=== PATIENT | female | born 1985 | race Caucasian/White ===

== ENCOUNTER 2021-07-22 12:44 | Outpatient (CLI) | payer OTHER, SELFPAY ==
--- NOTE | ~2021-07-22 | US_ITS ---
EXAMINATION: US soft tissue LE RT DATE: 07/22/2021 13:05 INDICATION: Local infection of the skin and subcutaneous tissue of right lower leg. The patient exper ienced a laceration from a nail in May and drainage in June. TECHNIQUE: Multiple grayscale and Doppler ultrasound images of the right lower leg were obtained. COMPARISON: None FINDINGS: In the anterior lower leg, there is a 3.6 x 1.2 cm mass of mixed echogenicity with small cy stic spaces. IMPRESSION: 1. Mass with small cystic spaces in the dominguez, consistent with hematoma and phlegmon/abscess. Reviewed, dictated and finalized at location A. IMPRESSION: 1. Mass with small cystic spaces in the dominguez, consistent with hematoma and phle gmon/abscess.
== END 2021-07-22 12:45 | disposition home or self-care (01) ==
LOC: CHSIMG 12:45
PROVIDERS: PCP Nurse Practitioner Family; Visit Provider Nurse Practitioner Family
DX: L08.9 Local infection of the skin and subcutaneous tissue, unspecified (principal)
CPT/HCPCS: 76882

== ENCOUNTER 2022-02-10 11:03 | Outpatient (CLI) | payer OTHER, SELFPAY ==
[2022-02-13 04:14] LABS: Prolactin 14.1 ng/mL (***)
== END 2022-02-10 11:04 | disposition home or self-care (01) ==
LOC: CHSLAB 11:05
PROVIDERS: PCP Nurse Practitioner Family; Visit Provider Obstetrics & Gynecology
DX: N64.3 Galactorrhea not associated with childbirth (principal)
CPT/HCPCS: 36415; 84146

== ENCOUNTER 2022-03-07 19:19 | Emergency (ER) | payer OTHER, SELFPAY ==
[2022-03-07 19:25] VITALS: BP 176/123; PULSE 109; RESP 20; TEMP 36.6; O2SAT 99
--- NOTE | 2022-03-07 22:00 | ED.URI ---
HPI - URI/Sore Throat General Chief Complaint: Upper Respiratory Infection Stated Complaint: aches fever congestion cough ear Time Seen by Provider: 03/07/22 21:50 Source: patient, RN notes reviewed and old records reviewed Mode of arrival: ambulatory Limitations: no limitations History of Present Illness HPI Narrative: 36 year old female who presents to [facility] with complaints of cough and congestion, fevers up to 101F, ear pain and headache for the past 4 days. Patient reports that she has taken a home COVID test today which was negative, has had COVID vaccinations but no flu shot taken. Patient has been taking Tylenol cold and flu for her symptoms along with Advil. Patient denies any shortness of breath with no tachypnea noted. MD elicited complaint: cough and sore throat Onset (ago): day(s) (4) Pain scale (0-10): 4 Treatments prior to arrival: ibuprofen and other (Tylenol severe cold and flu medication) Related Data Allergies Allergy/AdvReac Type Severity Reaction Status Date / Time pineapple Allergy Intermediate Rash Verified 03/07/22 21:15 strawberry Allergy Intermediate Rash Verified 03/07/22 21:15 amoxicillin AdvReac Mild MILD RASH Verified 03/07/22 21:15 AFTER USING FOR 4-5 DAYS Bee stings Allergy Intermediate Rash Uncoded 03/07/22 21:15 Review of Systems Review of Systems: CONSTITUTIONAL: Reports malaise, chills, sweats, or fever. EYES: Denies visual changes, redness, or discharge. ENT: Reports rhinorrhea, congestion, sinus pain, otalgia no sore throat. CARDIOVASCULAR: Denies chest pain, palpitations, or edema. RESPIRATORY: Reports cough.? Denies dyspnea. GASTROINTESTINAL: Denies abdominal pain, nausea, vomiting, diarrhea SKIN: Denies rash or itching. MUSCULOSKELETAL:Reports myalgia. NEUROLOGIC: reports headache. All systems reviewed & are unremarkable except as noted in HPI and below PMFSH Past Medical History Medical History (Updated 03/08/22 @ 00:00 by Background Daemon) Influenza A Nicotine dependence, cigarettes, uncomplicated Overweight Surgical History Surgical History delivery delivered X 3 S/P endometrial ablation Status post bilateral salpingectomy Family History Family History Grandparent Diabetes mellitus, Onset Age: 5 Family history of coronary artery disease, Onset Age: 82 Father Hypertension Mother Family history of type 2 diabetes mellitus Social History Social History Smoking status: Former smoker Second hand tobacco smoke exposure: No Smoking end date: 04/12/07 Alcohol intake: current Comments At time of signature, agree with nursing past medical, surgical, social and family history. There is no relevant family history pertinent to the presenting complaint Exam Narrative: GENERAL: Well-appearing, well-nourished, and in no acute distress. HEAD: Normocephalic EYES: PERRLA, conjunctivae clear ENT: Nares clear, turbinates edematous and erythematous, clear discharge. Mucous membranes moist. TM pearly holland with dull light reflex bilaterally; no tragal tenderness. Oropharynx erythematous without lesions. Tonsils not enlarged and without exudate, no drooling, no hoarseness, no trismus, uvula midline.post nasal drainage noted NECK: Supple. No lymphadenopathy CHEST: Clear to auscultation, breath sounds equal. No wheezing, rhonchi, rales, or stridor. No respiratory distress, speaks in full sentences.harsh cough 99% on room air HEART: Regular rate and rhythm. No murmur heard. SKIN: Warm, dry, no rash. NEURO: Alert and oriented x3. PSYCH: Normal mood and affect Course Course Emergency Course: Patient is aware of diagnosis, understands and agrees to treatment plan.? Anticipatory guidance given.? Patient agrees to follow-up as directed an
[2022-03-07 22:12] VITALS: BP 170/130
== END 2022-03-07 22:12 | disposition home or self-care (01) ==
PROVIDERS: Emergency Provider Registered Nurse
DX: J10.1 Influenza due to other identified influenza virus with other respiratory manifestations (principal); R05.1 Acute cough; Z87.891 Personal history of nicotine dependence
CPT/HCPCS: 87804; 99213; G0463

== ENCOUNTER 2024-08-09 15:14 | Outpatient (CLI) | payer OTHER, SELFPAY ==
--- NOTE | ~2024-08-09 | US_ITS ---
Pelvic ultrasound. Clinical History: Excessive and frequent menstruation Technique: Realtime transabdominal and transvaginal scanning of the pelvis was performed. Color flow Doppler and Doppler spectral analysis were performed. Findings: The uterus is anteverted. The endometrial stripe there is poorly seen. Small anterior exop hytic fibroid measures 1.9 cm in diameter. Larger fibroid towards the lower uterine segment measures 4.6 x 4.5 x 4.4 cm. The right ovary is not visualized. No significant right ovarian or adnexal mass is seen. The left ovary measures 3.5 x 3.5 x 3.0 cm. No significant left ovarian or adnexal mass is seen. There is no evidence of free fluid in the cul de sac. Impression: Uterine fibroids, as above. Endometrial stripe is poorly seen due to obscuration by the fibroids. Right ovary not visualized. Reviewed, dictated and finalized at [facility]. Impression: Uterine fibroids, as above. Endometrial stripe is poorly seen due to obscuratio n by the fibroids. Right ovary not visualized.
== END 2024-08-09 15:15 | disposition home or self-care (01) ==
LOC: GOSHIMG 15:15
PROVIDERS: PCP Obstetrics & Gynecology; Visit Provider Obstetrics & Gynecology
DX: N92.0 Excessive and frequent menstruation with regular cycle (principal); D25.9 Leiomyoma of uterus, unspecified
CPT/HCPCS: 76830; 76856

== ENCOUNTER 2024-10-27 09:00 | Outpatient (CLI) | payer OTHER, SELFPAY ==
--- OUTSIDE RECORDS SUMMARY | 2024-10-27 09:05 | XMS_ITS | Clinical Summary ---
Author Organization [facility] [address] Address [address] [facility] [address] [place] [address] Phone Care Team Providers Care Beam Builder Name Role Phone Unavailable Primary Care Provider Unavailabl e Social History Tobacco Use Types Packs/Day Years Used Date Smoking Tobacco: Never Assessed Comments Unknown Sex and Gender Information Value Date Recorded Sex Assigned at Not on file Legal Sex Female 8:41 AM CDT Gender Identity Not on file Sexual Orientation Not on file Plan of Treatment Health Maintenance Due Date Last Done Comments DTAP/TDAP/TD VACCINES (1 - Tdap) 09/03/2003 HEPATITIS B VACCINES (1 of 3 - 19+ 3-dose series) 09/03/2003 HPV/Cotest (21-29) 2005 CERVICAL CANCER SCREENING 2014 HPV/Cotest (30-65) 2014 PAP SMEAR 2014 BREAST CANCER SCREENING 2024 INFLUENZA VACCINE (#1) 2024 HPV VACCINES Aged Out No longer eligi ble based on patient's age to complete this topic Insurance [facility] [id number]
--- OUTSIDE RECORDS SUMMARY | 2024-10-27 09:05 | XMS_ITS | Clinical Summary ---
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 Gender Identity Not on file Sexual Orientation Not on file Plan of Treatment Health Maintenance Due Date Last Done Comments Cervical Cancer Screening Pa p Smear (Age 30 to 64) Every 3 Years 1984 Annual Physical 09/03/1987 Hepatitis C 2002 DTaP, Tdap and Td Vaccines ( 1 - Tdap) 09/03/2003 Hepatitis B Vaccines (1 of 3 - 19+ 3-dose series) 09/03/2003 Cervical Cancer Screening Pa p with HPV Testing (Age 30 to 64) Every 5 Years 2014 Cervical Cancer Screening with HPV 2014 COVID-19 Vaccine (2023-2 5 season) 2023 Mammogram Screening 2024 HPV Vaccines Aged Out No longer eligi ble based on patient's age to complete this topic Meningococcal B Vaccine Aged Out No l onger eligible based on patient's age to complete this topic Meningococcal Vaccine Aged Out No sánchez shanna eligible based on patient's age to complete this topic Pneumococcal Vaccine: Pediat rics (0 to 5 Years) and At-Risk Patients (6 to 49 Years) Aged Out No longer eligible b ased on patient's age to complete this topic RSV Immunizations Under 20 Months Aged Out No longer eligible based on patient's age to complete this topic
--- NOTE | 2024-10-27 09:10 | ECG_ITS ---
Test Date: 2024-10-27 09:17:13 Measurements Intervals [place] Rate: 71 P: 1 NM: 188 QRS: 8 QRSD: 93 T: 8 QT: 403 QTc: 439 Interpretive Statements SINUS RHYTHM NONSPECIFIC T-WAVE ABNORMALITY BORDERLINE ECG No previous ECG available for comparison Electronically Signed On 10-28-2024 08:59:40 CDT by Keegan Cesar M.D.
[2024-10-27 09:14] LABS: Hematocrit 44.1 % (35.0-49.0); Hemoglobin 14.1 g/dL (12.0-15.0); Mean Corpuscular HGB Conc 32.0 g/dL (32-36); Mean Corpuscular Hemoglobin 26.0 pg (27.0-31.0); Mean Corpuscular Volume 81.2 fL (78.0-102.0); Platelet Count Result 436 K/mm3 (150-420); Red Blood Count 5.43 M/mm3 (4.20-5.40); White Blood Count 9.8 K/mm3 (4.8-10.8)
== END 2024-10-27 09:01 | disposition home or self-care (01) ==
LOC: CHSLAB 09:03
PROVIDERS: PCP Nurse Practitioner Family; Visit Provider Obstetrics & Gynecology
DX: Z01.818 Encounter for other preprocedural examination (principal)
CPT/HCPCS: 36415; 85027; 93005

== ENCOUNTER 2024-11-03 00:34 | Day surgery (SDC) | payer OTHER, SELFPAY ==
[2024-10-26 16:05] VITALS: BMI 38.3
--- NOTE | 2024-10-26 16:10 | SUR.PREOP ---
Report to the Outpatient Waiting Room, entrance under the green pavilion located off [facility], at time 0600 on date 11/03/24. Planned Procedure Time: 0730.? Time changes happen often and if your time is changed the preop area will call you the afternoon before. - You and your visitor will be asked to self-screen and do not enter if you have any COVID symptoms. Please call surgeon if you need to reschedule. - A mask is optional within the hospital at this time. Patients may have clear liquids (water, carbonated beverages, clear teas, apple juice) until 3 hours prior to surgery with a maximum of 20 ounces. - No food from midnight until time of surgery and no smoking, or chewing tobacco (or any form of nicotine). No chewing gum, candy or mints. - Infants may have breast milk until 4 hours before surgery, formula 6 hours prior to surgery. - Children will be allowed to drink immediately following surgery.? If applicable, please bring a bottle or sippy cup to assist with drinking. Juice, water, soda, and popsicles are readily available.? For infants on formula, please bring formula the day of surgery.? Pacifiers are allowed. Take only the following medications with a SIP of water on the morning of surgery: _hold morning meds_ DO NOT STOP ANY OF YOUR OTHER PRESCRIPTION MEDICATIONS PRIOR TO SURGERY EXCEPT THE FOLLOWING Hold all vitamins and supplements for 3 days per anesthesiologist. Medications to discontinue per physician ezetimibe, minoxidil, rosuvastatin, winter day of surgery. Semaglutide for 10 days Date to take last dose Please no make-up, nail danish, hairspray, perfume, deodorant, or body powder the day of surgery.? No jewelry (including any body piercings) or valuables the day of surgery, leave them at home.? Please take a shower or bath the night before, or the morning of, surgery with an antibacterial soap.? Wear comfortable, loose fitting clothing.? Children are encouraged to wear pajamas. - Jewelry must be removed prior to entering the operating room.? Rings and piercings that are not removed may be cut off. - The hospital will not accept responsibility for valuables.? - Please leave all valuables, including medications, at home the day of surgery. If you are going home after surgery, a licensed highway truck driver must drive you home.? - NO public transportation without another adult if you receive anesthesia. - We recommend that an adult stay with you for 24 hours following discharge. - We also recommend that you do not drive, make important decision, drink alcoholic beverages, or take any drugs that were not prescribed by your health care provider for at least 24 hours after your discharge time. For Pediatric surgeries, we recommend two adults accompany the child home. Follow any additional instructions given to you from your surgeon. Telephone instructions given to __patient__and asked if any additional questions and then verbalized understanding. Patient advised to call surgeon office or pre surgery nurse liaison [phone] if any additional questions.
[2024-11-03] VITALS (16 sets, daily range): BP systolic 94–178; BP diastolic 63–110; PULSE 73–125; RESP 14–20; TEMP 36.3–37.1; O2SAT 91–100
--- OUTSIDE RECORDS SUMMARY | 2024-11-03 00:38 | XMS_ITS | Continuity of Care Document ---
Author Organization [facility] Address [address] [place] [address] Phone Care Team Providers Care Steel Rule Die Maker Apprentice Name Role Phone Unavailable Unavailable Unavailable Advance Directives Directive Yes / No Effective Date File Name No Information Encounters Encounter Description Practice Location Reason(s) For Visit Diagnoses Date Provider Providers Copied on Encounter [facility], [address] [facility], [place], [place], [id number], tel:[phone] [facility] No Information No Information Referring Provider: CAREY ROBERTSON, [address] [place] [address],[place], [address]. tel:[phone] Family History Family Member Type Diagnosis Age At Onset No Information Payers Payer name Insurance type Covered green party ID Authoriza tizackary(s) [facility] [id number] CI [id number] Social History Type Description Quantity Date Captured Comments Sex Female Smoking Status No Information Chief Complaint And Reason For Visit No Information History Of Present Illness Encounter Date Complaint History Of Prese nt Illness No Information Instructions Date Instruction Additional Infor mation No Information Assessments Type Assessment Date No Information
--- OUTSIDE RECORDS SUMMARY | 2024-11-03 00:38 | XMS_ITS | Clinical Summary ---
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 Gender Identity Not on file Sexual Orientation Not on file Plan of Treatment Health Maintenance Due Date Last Done Comments Cervical Cancer Screening Pa p Smear (Age 30 to 64) Every 3 Years 1984 Annual Physical 09/03/1987 Hepatitis C 2002 DTaP, Tdap and Td Vaccines ( 1 - Tdap) 09/03/2003 Hepatitis B Vaccines (1 of 3 - 19+ 3-dose series) 09/03/2003 HPV Vaccines (1 - 3-dose SCD M series) 09/03/2011 Cervical Cancer Screening Pa p with HPV Testing (Age 30 to 64) Every 5 Years 2014 Cervical Cancer Screening with HPV 2014 COVID-19 Vaccine (2023-2 5 season) 2023 Mammogram Screening 2024 Meningococcal B Vaccine Aged Out No l [...]
--- OUTSIDE RECORDS SUMMARY | 2024-11-03 00:38 | XMS_ITS | Clinical Summary ---
Author Organization [facility] [address] Address [address] [facility] [address] [place] [address] Phone Care Team Providers Care Crawler Tractor Operator Name Role Phone Unavailable Primary Care Provider Unavailabl e Social History Tobacco Use Types Packs/Day Years Used Date Smoking Tobacco: Never Assessed Comments Unknown Sex and Gender Information Value Date Recorded Sex Assigned at Not on file Legal Sex Female 8:41 AM CDT Gender Identity Not on file Sexual Orientation Not on file Plan of Treatment Health Maintenance Due Date Last Done Comments HPV VACCINES (1 - 3-dose series) 09/03/1999 DTAP/TDAP/TD VACCINES (1 - Tdap) 09/03/2003 HEPATITIS B VACCINES (1 of 3 - 19+ 3-dose series) 08/11 HPV/Cotest (21-29) 2005 CERVICAL CANCER SCREENING 2014 HPV/Cotest (30-65) 2014 PAP SMEAR 2014 BREAST CANCER SCREENING 2024 INFLUENZA VACCINE (#1) 2024 Insurance [facility] [id number]
--- NOTE | 2024-11-03 07:12 | WPDHPUPDATE1 ---
History and Physical Update Update Date/Time: 11/03/24 07:12 History and Physical has been reviewed, including an updated exam of the patient. There are NO changes in the patient's condition. Risks, benefits, and alternatives have been discussed and questions answered. Patient agrees to proceed with procedure.
[2024-11-03] MEDS: KETOROLAC 15 MG/ML VIAL (*BKC) IV PUSH (07:15)
[2024-11-03] MEDS: ACETAMINOPHEN 500 MG TABLET 1000 MG PO ×3 (07:15→19:19)
--- NOTE | 2024-11-03 07:28 | WPDANESEPPF ---
Anes - Initial Pre Proc Eval Procedure: Operation Date: 11/03/24 07:30 Proposed Procedures p Robotic Assisted Laparoscopic Total Vaginal Hysterectomy with Bilateral Salpingectomy - Ciro Rivas MD Date/Time: 11/03/24 07:28 Surgeon: Ciro Rivas MD Pre Op Diagnosis: symptomatic fibroid uterus Patient Data Age: 39 Gender: F Height: 1.7 m Weight: 111.13 kg Allergies Allergy/AdvReac Type Severity Reaction Status Date / Time pineapple Allergy Intermediate Rash Verified 10/27/24 08:20 strawberry Allergy Intermediate Rash Verified 10/27/24 08:20 pork derived (porcine) Allergy Unknown Abdominal Verified 10/27/24 08:20 Pain amoxicillin AdvReac Mild MILD RASH Verified 10/27/24 08:20 AFTER USING FOR 4-5 DAYS Bee stings Allergy Intermediate Rash Uncoded 10/27/24 08:20 Home Medications ?Medication ?Instructions ?Recorded ?Confirmed ?Type norethindrone (contraceptive) 0.35 0.35 mg PO DAILY #84 tabs 07/04/24 10/26/24 Rx mg tablet (Summer) Minoxidil 1.5mg See Rx Instructions PO DAILY 07/05/24 10/26/24 History ezetimibe 10 mg tablet 10 mg PO DAILY 08/16/24 10/26/24 History rosuvastatin 5 mg tablet 5 mg PO DAILY 08/16/24 10/26/24 History semaglutide 0.5 mg/0.1 mL 0.5 mg subcut WEEKLY 08/16/24 10/26/24 History subcutaneous syringe lisinopril 10 mg tablet 10 mg PO DAILY #90 tabs 10/27/24 10/27/24 Rx Patient hx anesthesia problems: none Family hx anesthesia problems: none Results Review: All pre-operative results and documents have been reviewed as part of the pre-operative evaluation. [facility] Past Medical History Medical History Influenza A Overweight Nicotine dependence, cigarettes, uncomplicated Surgical History Surgical History Status post bilateral salpingectomy S/P endometrial ablation delivery delivered X 3 Family History Family History Grandparent Diabetes mellitus, Onset Age: 5 Family history of coronary artery disease, Onset Age: 82 Father Hypertension Mother Family history of type 2 diabetes mellitus Social History Social History Smoking status: Never smoker Second hand tobacco smoke exposure: No Smoking end date: 04/12/07 Alcohol intake: current Substance use type: marijuana Living arrangements: with family Spiritual care concerns: No Anes - Eval Final PreProcedure Day of Procedure 11/03/24 07:28 Patient weight: morbidly obese Heart: regular rate and rhythm Lungs: clear to auscultation Airway: Mallampati scale class II Neurological: alert and oriented Last oral intake: >/= 8 hours ASA classification: III Emergent: no Anesthetic plan: proceed Anesthesia type and monitoring: general ETT and standard monitoring Results Review: All pre-operative results and documents have been reviewed as part of the pre-operative evaluation. Informed Consent: The patient's anesthetic plan and its attendant risks and benefits were discussed with the patient/family/POA. Questions were solicited and answers provided to the satisfaction of the patient/family/POA.
[2024-11-03] MEDS: ceFAZolin 2 GM in SODIUM CHLORIDE 0.9% IV 50 ML 100 ML IVPB (07:34)
[2024-11-03] MEDS: LACTATED RINGERS 1,000 ML 30 ML IV CONT ×2 (07:37→10:45)
[2024-11-03 07:46] LABS: BEDSIDEPREGUCG Negative (Negative)
[2024-11-03] MEDS: BUPIVACAINE/EPINEPHRINE 0.5% 50 ML VIAL 30 ML INFILTRATE (08:10)
--- NOTE | 2024-11-03 09:00 | S_PTH ---
PATIENT: Faby Kenny LOC: [facility] U#:[id number] AGE/SX: 39/F ROOM: RE11/03/[address]: Ciro Rivas MD : 1985 BED: DIS: 11/04/2024 SPEC #: [id number] RECD: 11/03/24 11:08 STATUS: LEDY REQ #: [id number] MAURA: 11/03/24 09:[address]: Ciro Rivas DEPT: [facility] Surgical RECD BY: Carlita Mark ENTERED: 11/03/24 11:09 SP TYPE: Surgical OTHR DR: Aisha Logan APRN Tissues: A - Uterus Procedures: Hematoxylin and Eosin Stain Gross and Microscopic Level 5
[2024-11-03] MEDS: METHYLENE BLUE 0.5% INJ 10 ML AMPULE 20 ML IRRIGATION (10:28)
--- NOTE | 2024-11-03 11:15 | P.OP_ITS ---
Procedure Note - Detailed Date of Procedure 11/03/24 Pre-op Diagnosis symptomatic fibroid uterus Post-op Diagnosis Same (ovarian cyst, lower abdominal adhesions) Procedure Performed Laparoscopic robotic assisted total hysterectomy with left oophorectomy and removal of proximal tubal segments. Lysis of adhesions. Cystoscopy. Surgeon Ciro Rivas MD Anesthesia General Indications Menorrhagia with symptomatic fibroids. Findings Enlarged uterus with multiple intramural fibroids, left ovary with abnormal appearing cyst. Normal right ovary. Normal cytoscopy and jetting observed from both ureteral orifi. Description of Procedure After informed consent was obtained she was taken to the operating room and general endotracheal anesthesia was administered. She was placed in low lithotomy position.She was and prepped and draped in sterile fashion. Goncalves catheter placed in bladder. Attention was turned to the vagina speculum was inserted. Single-tooth tenaculum placed on anterior lip of the cervix the u terus sounded to 10 cm. The cervix was dilated to a 8 Mims dilator. A size 10 uterine manipulator unable to fit in uterus therefore a size 8 manipulator was inserted and secured. A size 3.0 colp cup was secured in the vagina. Then attention was turned to the abdomen with new sterile gloves. .5% marcaine injected subcutaneously. An incision was made horizontal 2 cm above the umbilicus.AVeress needle was inserted and a pneumoperitoneum of 15 mm per mercury was obtained. A small incision was made approximately 6 cm lateral to the port on the left side of the port. A size 8mm robotic port was inserted under laparoscopic visualization into the abdomen on the left side. another incision was made and the dietetic assistant 10mm port inserted. Attention was turned to the right round ligament which was ligated. The anterior leaf of broad ligament dissected to vesicouterine peritoneum. The right side of the bladder was dissected from the lower uterine segment and upper cervix. The right ovarian ligament was ligated. The ascending uterine vessels on the right were cauterized. The uterine vessels were ligated. Attention was turned to the left round ligament which was ligated and the anterior leaf of the broad ligament was dissected anteriorly. The rest of the vesicouterine peritoneum was dissected off of the uterus. the ovary appeared abnormal and therefore the infundibulopelvic ligament was ligated and the ascending uterine vessels were ligated. The uterine arteries were ligated. The cardinal ligaments were ligated. This was done on both sides. An incision was made anterior colpotomy incision was made and this was carried around until the cervix was removed from the vagina. The uterus and cervix were attempted to be removed through the vagina with dissecteing the cervix to lower uterine body but unable to complete this due to calcified anterior fibroid. Attention was then turned to the surgery console the superior and anterior uterus dissected. The large c alcified fibroid was debulked partially from uterus and the uterus with partially debulked fibroid was removed through the vagina. The vaginal cuff was closed in a running fashion with 0 V lock suture x 2. Hemostasis was noted. The pelvis was irrigated. Hemostasis noted. Hemoderm was applied in the pelvis. The patient was taken out of Trendelenburg position. The pneumoperitoneum was released and the ports were removed. A cystoscopy was performed and was normal with normal jetting from both ureteral orifi. The skin incisions were closed with 4 O Vicryl and skin glue. The patient was extubated in operating room. The sponge count was correct x2. Patient tolerated procedure well and was taken to recovery in stable condition. Estimated Blood Loss 75 Drains No Packing No Pathology Yes (uterus with cervix and left ovary and tubal segments.) Complications No immediate complications Condition Stable Disposition PACU [facility] Billing Surgery - Charge Forward: Surgery Billing
[2024-11-03] MEDS: fentaNYL CITRATE INJ (*CRX) 100 MCG/2 ML VIAL 25 MCG IV PUSH ×3 (11:20→12:10)
[2024-11-03] MEDS: metroNIDAZOLE 500 MG/ISO 100ML 500 MG/100 ML BAG 100 MG IVPB ×2 (13:18→19:19)
[2024-11-03] MEDS: KETOROLAC 30 MG/ML VIAL (*BKC) IV PUSH ×2 (13:18→19:19)
[2024-11-03] MEDS: SIMETHICONE 80 MG TAB.CHEW PO ×2 (13:25→16:08)
--- NOTE | 2024-11-03 13:31 | PM.DS ---
DS: Admitting Diagnosis Discharge Date 11/03/24 Admitting Diagnosis symptomatic fibroid uterus DS: Discharge Diagnosis Discharge Diagnosis (1) Menorrhagia: Code(s): N92.0 - Excessive and frequent menstruation with regular cycle Status: Acute (2) Fibroid uterus: Code(s): D25.9 - Leiomyoma of uterus, unspecified Status: Acute DS: Summary Hospital Course Reason for hospitalization: HYSTERECTOMY Hospital Course: SHE WAS ADMITTED AND HAD AN UNCOMPLICATED HYSTERECTOMY, LEFT OOPHORECTOMY AND CYSTOSCOPY. SHE DID WELL. Status at Discharge Functional status at discharge: independent ambulation Time Spent with Patient Time attestation: Total time spent providing and/or coordinating discharge services: Exam Const: General: cooperative Orientation/consciousness: oriented to person, oriented to place and oriented to time Eyes: General: appearance normal, both eyes and all related structures Resp: Effort & Inspection: normal respiratory effort GI: Inspection: normal to inspection Skin: General skin exam: normal color Neuro: General: oriented to person, oriented to place and oriented to time Extrem: General: normal to inspection and no calf tenderness Psych: Appearance: grossly normal DS: Data Data Completed and Pending Pending studies at discharge: Pending at discharge 11/03/24 09:00 Surgical [PTH] Routine Labs on day of discharge: Labs from last 24 hours 11/03/24 11/03/24 07:09 06:30 POC Urine HCG, Qual Negative Blood Type B Positive Antibody Screen Negative Discharge Plan Discharge Patient Disposition: Home Patient Language: American Stand Alone Forms: General Discharge Instructions Discharge Medications: New metronidazole 500 mg tablet 500 mg PO Q12H 10 Days Qty: 20 0RF hydrocodone-acetaminophen 5-325 mg Tablet 1 tablet PO Q3H PRN (Reason: Pain Rated 4-6) Qty: 20 0RF ketorolac 10 mg tablet 10 mg PO Q6H PRN (Reason: pain) Qty: 16 0RF Rx Instructions: maximum total duration of 5 days from all oral, intranasal, or parenteral formulations No Action semaglutide 0.5 mg/0.1 mL syringe 0.5 mg subcut WEEKLY ezetimibe 10 mg tablet 10 mg PO DAILY rosuvastatin 5 mg tablet 5 mg PO DAILY lisinopril 10 mg tablet 10 mg PO DAILY Qty: 90 0RF norethindrone (contraceptive) [Summer] 0.35 mg tablet 0.35 mg PO DAILY Qty: 84 1RF Minoxidil 1.5mg tablet See Rx Instructions PO DAILY Rx Instructions: orally daily;
--- NOTE | 2024-11-03 14:09 | ADMGEN ---
1230-This patient, Faby Kenny, was admitted to [facility] 2nd Floor Room 289-00. Patient/family oriented to hospital policies and general routines including ID bracelet, bed and alarms, visiting hours, pain management, procedures, bathroom and other care routines, personal items, smoking policy, room service/diet, and visiting hours. Information on how to activate the Rapid Response Team has been discussed. Patient/Family are encouraged to report perceived risks to care and to ask questions if they do not understand what they are told or what they should do.
[2024-11-03] MEDS: HYDROcodone/acetaminophen (*CRX) 10-325 MG TABLET 1 TAB PO ×2 (14:35→18:46)
[2024-11-03] MEDS: ceFAZolin 1 GM in SODIUM CHLORIDE 0.9% IV 50 ML 100 ML IVPB ×2 (15:23→23:47)
[2024-11-03] MEDS: SODIUM CHLORIDE 0.9% IV 1,000 ML 125 ML IV CONT ×2 (16:09→23:51)
[2024-11-03] MEDS: LABETALOL HCL 100 MG TABLET 200 MG PO (20:53)
[2024-11-03] MEDS: SENNA/DOCUSATE SODIUM TABLET 2 TAB PO (20:55)
[2024-11-04] VITALS: BP 142/90; PULSE 101; RESP 18; TEMP 36.9; O2SAT 96
[2024-11-04] MEDS: ACETAMINOPHEN 500 MG TABLET 1000 MG PO ×2 (01:20→08:13)
[2024-11-04] MEDS: metroNIDAZOLE 500 MG/ISO 100ML 500 MG/100 ML BAG 100 MG IVPB (01:21)
[2024-11-04] MEDS: KETOROLAC 30 MG/ML VIAL (*BKC) IV PUSH (01:21)
[2024-11-04 04:50] VITALS: BP 126/70; PULSE 82; RESP 18; TEMP 36.8; O2SAT 99
[2024-11-04 08:05] VITALS: BP 171/95; PULSE 77; RESP 16; TEMP 36.8; O2SAT 97
[2024-11-04] MEDS: ceFAZolin 1 GM in SODIUM CHLORIDE 0.9% IV 50 ML 100 ML IVPB (08:12)
[2024-11-04] MEDS: IBUPROFEN 600 MG TABLET PO (08:13)
[2024-11-04] MEDS: ROSUVASTATIN 5 MG TABLET PO (08:13)
[2024-11-04] MEDS: SIMETHICONE 80 MG TAB.CHEW PO (08:13)
[2024-11-04 09:15] VITALS: BP 153/100
--- NOTE | 2024-11-04 12:06 | PC.NURSE ---
1130: Upon giving discharge instructions, pt stated that her primary MD just started her on the BP medication and wanted her to double it this coming Wednesday. RN told pt that Dr. Verma suggested she call her primary MD this Wednesday morning and convey what her BP's were here in the hospital. Also advised pt to take her BP's at home and convey those to her MD. Pt states she has a BP cuff at home. RN wrote down pt's. last few BP's for her to tell her MD. Pt states understanding.
== END 2024-11-04 11:40 | disposition home or self-care (01) ==
LOC: ANHSURGERY 11:12 → ANHOB2 12:23
PROVIDERS: PCP Nurse Practitioner Family; Visit Provider Obstetrics & Gynecology
PROC: (CPT 58573; principal; 2024-11-03 07:30)
DX: D25.1 Intramural leiomyoma of uterus (principal); D25.2 Subserosal leiomyoma of uterus; N92.0 Excessive and frequent menstruation with regular cycle; N73.6 Female pelvic peritoneal adhesions (postinfective); N83.02 Follicular cyst of left ovary; E66.01 Morbid (severe) obesity due to excess calories; Z68.39 Body mass index [BMI] 39.0-39.9, adult
CPT/HCPCS: 58573; S2900; 36415; 86850; 86900; 86901; 88307; 99199; J0690; A9270; J0360; J1100; J1171; J1836; J1885; J2003; J2250; J2405; J2704; J3010; J7030; J7120; Q9968